=== PATIENT | female | born 1985 | race Caucasian/White ===

== ENCOUNTER → 2016-05-19 | Outpatient (CLI) | payer BC ==
[~2016-05-19] MED LIST: FLOMAX0.4 MG PO; ONE DAILY WOME1 EAC1 PO; PERCOCET 5-3251 EACH PO
== END | disposition disaster alternative care site (69) ==
LOC: GRAD 09:31
DX: N20.1 Calculus of ureter (principal); Z96.0 Presence of urogenital implants

== ENCOUNTER → 2016-05-22 | Day surgery (SDC) | payer BC | END | disposition disaster alternative care site (69) | LOC: EDSTATUS 05-21 16:00 → GPOC 05-21 16:00 → GSDC 08:12 → GRAD 08:30 | DX: N20.0 Calculus of kidney (principal); Z53.9 Procedure and treatment not carried out, unspecified reason | CPT/HCPCS: J2001; J7030 ==